=== PATIENT | female | born 1935 | race Asian ===

== ENCOUNTER 2016-08-21 11:54 | Outpatient (CLI) ==
[2016-08-21 12:22] LABS: BASOPHILS % (AUTO) 0.8 % (0.0-3.0); EOSINOPHILS # (AUTO) 0.2 K/ul (0.0-0.7); EOSINOPHILS % (AUTO) 3.3 % (0.0-7.0); HEMATOCRIT 38.9 % (37.0-47.0); HEMOGLOBIN 12.9 g/dl (12.0-16.0); LYMPHOCYTES # (AUTO) 2.1 K/uL (0.60-3.4); LYMPHOCYTES % (AUTO) 44.1 (10.0-50.0); MEAN CORPUSCULAR HEMOGLOBIN 28.7 pg (27.0-31.0); MEAN CORPUSCULAR HGB CONC 33.2 (31.8-35.4); MEAN CORPUSCULAR VOLUME 86.6 fl (81.0-99.0); MONOCYTES # (AUTO) 0.6 K/uL (0.4-2.0); MONOCYTES % (AUTO) 11.6 (0-10); NEUTROPHILS # (AUTO) 1.9 K/ul (2.0-6.9); NEUTROPHILS % (AUTO) 40.2; PLATELET COUNT 218 10^3/uL (140-440); RED BLOOD COUNT 4.49 10^6/ul (4.20-5.40); WHITE BLOOD COUNT 4.83 K/ul (4.6-10.2)
--- NOTE | 2016-08-21 12:55 | DI ---
EXAM: Chest two view, frontal and lateral views. HISTORY: Bronchitis. COMPARISON: 11/29/2015. FINDINGS: The heart size is normal. There is no pulmonary vascular congestion. The lungs are rashid r. No pleural effusion or pneumothorax is seen. No acute osseous abnormality identified. Since prior study, there has been no significant interval change. IMPRESSION: No acute cardiopulmonary process.
[2016-08-21 13:21] LABS: ALBUMIN 3.4 g/dL (3.4-5.0); ALBUMIN/GLOBULIN RATIO 0.81; ANION GAP 12.9; BILIRUBIN,TOTAL 0.55 mg/dL (0.00-1.20); BUN/CREATININE RATIO 17.44; CHOL/HDL RATIO 2.6 (4.5-5.5); CREATININE 0.86 mg/dL (0.60-1.30); POTASSIUM 3.9 mmol/L (3.5-5.10); TOTAL PROTEIN 7.6 g/dL (5.8-8.1)
== END 2016-08-21 11:55 | disposition home or self-care (01) ==
LOC: LAB 11:54 → EDBD 11:54 → LAB 11:55
PROVIDERS: ATTEND Emergency Medicine
DX: J40 Bronchitis, not specified as acute or chronic (principal); D64.9 Anemia, unspecified; E78.5 Hyperlipidemia, unspecified; R73.9 Hyperglycemia, unspecified
CPT/HCPCS: 36415; 80053; 80061; 84443; 85025

== ENCOUNTER 2017-01-01 16:39 | Outpatient (CLI) ==
--- NOTE | 2017-01-01 17:52 | DI ---
Exam: Lumbar spine complete with obliques. HISTORY: Pain. Findings: Anterior, lateral, coned-down and bilateral oblique images of the lumbar spine are submitt ed. These demonstrate five [id number], lumbarized vertebrae with subtle levoscoliosis and no co mpression fracture or listhesis. The facet joints appear grossly aligned and intact. Atherosclerotic calcifications are noted. Impressions: Subtle levoscoliosis and no compression fracture or listhesis in the lumbar spine. Multilevel mild degenerative findings. Atherosclerosis.
--- NOTE | 2017-01-01 17:54 | DI ---
Exam: Left knee four view. HISTORY: Pain. Findings: Four images of the left knee are submitted. These demonstrate mild narrowing of the media l and lateral compartments with mild osteophytosis. There is no acute fracture or dislocation. Ther e is no osseous erosion or radiodense foreign body. I do not see a suprapatellar effusion however ev aluation is limited by rotation of the lateral view. No focal soft tissue swelling is noted. Dense atherosclerotic plaque is seen. Impressions: Mild tricompartmental degenerative disease with no acute fracture or dislocation identi fied in the left knee. Atherosclerosis.
--- NOTE | 2017-01-01 18:04 | DI ---
Exam: Left hip two-view. HISTORY: Pain. Findings: Two images of the left hip are submitted. These demonstrate no acute fracture or dislocat ion. There is no osseous erosion or radiodense foreign body. There are mild degenerative findings i n the left hip. The adjacent left [place]ghan pelvis appears intact. Atherosclerotic calcifications are no gilbert. Impressions: Mild degenerative findings of the left hip with no acute fracture or dislocation identi fied. Atherosclerosis.
== END 2017-01-01 16:40 | disposition home or self-care (01) ==
LOC: RAD 16:39
PROVIDERS: ATTEND Internal Medicine
DX: M25.552 Pain in left hip (principal); M54.9 Dorsalgia, unspecified; M25.562 Pain in left knee